=== PATIENT | male | born 1965 | race Caucasian/White ===

== ENCOUNTER 2023-08-08 19:12 | Inpatient (IN) | payer OTHER ==
[~2023-08-08] VITALS: Ht 167.6 cm; Wt 83.9 kg
[2023-08-08] MEDS: ASPIRIN 81MG TABLET PO ONE (19:53)
[2023-08-08 20:15] LABS: BASOPHILS % 0.5 % (0.0-2.0); HEMATOCRIT. 38.9 % (42.0-52.0); HEMOGLOBIN. 13.3 g/dL (14.0-18.0); LYMPHOCYTES % 31.3 % (20.0-50.0); MEAN CORPUSCULAR HEMOGLOBIN 31.3 pg (28.0-32.0); MEAN CORPUSCULAR HGB CONC 34.2 g/dL (31.0-37.0); MEAN CORPUSCULAR VOLUME 91.5 fL (80.0-94.0); MEAN PLATELET VOLUME 7.7 fl (7.4-10.4); MONOCYTES % 9.3 % (2.0-8.0); NEUTROPHILS % 55.9 % (40.0-76.0); PLATELET 259 x1000/uL (130-400); RED BLOOD CELL COUNT 4.25 mill/uL (4.7-6.1); RED CELL DISTRIBUTION WIDTH 13.2 % (11.6-14.6)
[2023-08-08 20:21] LABS: CARBON DIOXIDE 22 mEq/L (21-32); CHLORIDE 107 mEq/L (98-107); POTASSIUM 3.3 mEq/L (3.5-5.1); SODIUM 137 mEq/L (136-145)
[2023-08-08 20:22] LABS: CALCIUM 9.2 mg/dL (8.7-10.4)
[2023-08-08 20:26] LABS: CREATININE 0.9 mg/dL (0.6-1.3); GLUCOSE 209 mg/dL (70-105)
[2023-08-08 20:27] LABS: UREA NITROGEN BLOOD 13 mg/dL (9-23)
[2023-08-08 20:28] LABS: ALANINE AMINOTRANSFERASE 30 IU/L (10-49)
[2023-08-08 20:29] LABS: ALBUMIN 4.1 g/dL (3.2-4.8); ASPARTATE AMINOTRANSFERASE 25 IU/L (<34); BILIRUBIN TOTAL 0.3 mg/dL (0.1-1.0); PROTEIN TOTAL 6.7 g/dL (6.0-8.3)
[2023-08-08 20:36] LABS: ETHANOL BLOOD < 10 mg/dL (<10); TROPONIN I HIGH SENSITIVITY 59 ng/L (3.0-53)
[2023-08-08] MEDS: POTASSIUM CHLORIDE 20MEQ TABLET SR PO NR (21:23)
[2023-08-09] VITALS: BP 104/69; PULSE 57; RESP 16; TEMP 97.7
[2023-08-09] MEDS ORDERED: ACETAMINOPHEN 325MG TABLET PO PRN (00:45)
[2023-08-09] MEDS ORDERED: DEXTROSE 50% WATER 50ML SYRINGE IV PRN (00:45)
[2023-08-09 04:00] VITALS: BP 97/58; PULSE 60; RESP 17; TEMP 97.8
[2023-08-09] MEDS: BLOOD SUGAR DIAGNOSTIC STRIP TEST SCH (06:10)
[2023-08-09] MEDS: INSULIN LISPRO 100 UNITS/ML SUBCUT SCH (06:10)
[2023-08-09 08:00] VITALS: BP 114/74; PULSE 67; RESP 18; TEMP 97.9
[2023-08-09 08:13] LABS: BASOPHILS % 0.6 % (0.0-2.0); EOSINOPHILS % 2.9 % (0.0-5.0); HEMATOCRIT. 39.1 % (42.0-52.0); HEMOGLOBIN. 13.6 g/dL (14.0-18.0); MEAN CORPUSCULAR HEMOGLOBIN 31.3 pg (28.0-32.0); MEAN CORPUSCULAR HGB CONC 34.7 g/dL (31.0-37.0); MEAN CORPUSCULAR VOLUME 90.1 fL (80.0-94.0); MEAN PLATELET VOLUME 8.1 fl (7.4-10.4); MONOCYTES % 10.2 % (2.0-8.0); NEUTROPHILS % 51.3 % (40.0-76.0); PLATELET 255 x1000/uL (130-400); RED BLOOD CELL COUNT 4.34 mill/uL (4.7-6.1); RED CELL DISTRIBUTION WIDTH 13.2 % (11.6-14.6); WHITE BLOOD COUNT 5.3 x1000/uL (4.5-11.0)
[2023-08-09] MEDS: FAMOTIDINE 20MG TABLET PO SCH (08:40)
[2023-08-09] MEDS: METFORMIN HCL 500MG TABLET PO SCH (08:40)
[2023-08-09 08:41] LABS: CARBON DIOXIDE 25 mEq/L (21-32); CHLORIDE 108 mEq/L (98-107); SODIUM 140 mEq/L (136-145)
[2023-08-09 08:47] LABS: CREATININE 0.7 mg/dL (0.6-1.3); GLUCOSE 83 mg/dL (70-105); TRIGLYCERIDE 98 mg/dL (0-150); UREA NITROGEN BLOOD 10 mg/dL (9-23)
[2023-08-09 08:48] LABS: CHOLESTEROL 168 mg/dL (<200); LDL CHOLESTEROL 111 mg/dL (5-100)
[2023-08-09 08:49] LABS: TROPONIN I HIGH SENSITIVITY 62 ng/L (3.0-53)
[2023-08-09 08:54] LABS: CALCIUM 9.1 mg/dL (8.7-10.4)
[2023-08-09 09:01] LABS: HDL CHOLESTEROL 41 mg/dL (>55)
[2023-08-09] MEDS ORDERED: PNEUMOCOCCAL 23-VAL P-SAC VAC 0.5 ML IM ONE (11:45)
[2023-08-09 12:00] VITALS: BP 120/71; PULSE 66; RESP 18; TEMP 97.5
[2023-08-09 16:00] VITALS: BP 113/77; PULSE 66; RESP 18; TEMP 97.7
[2023-08-09 20:00] VITALS: BP 122/83; PULSE 78; RESP 20; TEMP 97.5
[2023-08-09 20:14] LABS: TROPONIN I HIGH SENSITIVITY 61 ng/L (3.0-53)
[2023-08-09] MEDS: METOPROLOL TARTRATE 25MG TABLET PO SCH (21:07)
[2023-08-10] VITALS: BP 101/64; PULSE 56; RESP 20; TEMP 97.6
[2023-08-10 04:00] VITALS: BP 102/72; PULSE 57; RESP 20; TEMP 97.5
[2023-08-10 08:00] VITALS: BP 113/68; PULSE 58; RESP 18; TEMP 98.1
[2023-08-10 12:00] VITALS: BP 107/74; PULSE 62; RESP 18; TEMP 97.9
[2023-08-10 12:44] VITALS: BP 107/74; PULSE 61; TEMP 98.1; O2SAT 99
== END 2023-08-10 15:25 | disposition short-term general hospital (02) | DRG 282 ==
LOC: ER 19:12 → 8WST 21:44 → EDBEDREQ 21:46 → ER 08-09 00:05
PROVIDERS: ADMIT Internal Medicine; ATTEND Internal Medicine
DX: I21.4 Non-ST elevation (NSTEMI) myocardial infarction (principal); I49.3 Ventricular premature depolarization; R00.2 Palpitations; E11.9 Type 2 diabetes mellitus without complications
CPT/HCPCS: 36415; 71045; 80048; 80053; 80061; 80320; 82962; 83036; 83880; 84443; 84484; 85025; 93005; 93306; 99285; G0480